=== PATIENT | male | born 1990 | race Caucasian/White ===

== ENCOUNTER 2017-10-26 22:02 | Emergency (ER) | payer OTHER ==
[2017-10-26 22:11] VITALS: BP 150/84; PULSE 85; RESP 20; TEMP 98.4
--- NOTE | 2017-10-26 22:43 | XR ---
EXAMINATION TYPE: XR chest 2V DATE OF EXAM: 10/26/2017 COMPARISON: NONE HISTORY: Cough and chest pain TECHNIQUE: Frontal and lateral views of the chest are obtained. FINDINGS: Heart and mediastinum are normal. Lungs are clear. Diaphragm is normal. Bony thorax appear s normal. There are chest leads. IMPRESSION: Normal chest
--- NOTE | 2017-10-26 23:09 | ED ---
Chest Pain HPI - General Chief Complaint: Chest Pain Stated Complaint: Chest Pains Time Seen by Provider: 10/26/17 22:24 Source: patient, family, RN notes reviewed Mode of arrival: ambulatory Limitations: no limitations - History of Present Illness Initial Comments: 27-year-old male presents emergency Department chief complaint of chest pain. He's had 3 separate occasions over the last month or so. Patient states that it sharp pain only lasts a few minutes. He does admit that he's been having acid reflux. He has no associated shortness of breath. Patient is a daily smoker has no history of hypertension, hyperlipidemia and diabetes. There is some family history of heart disease which includes his father age 50. Patient states she has no current chest pain denies any nausea, vomiting, diarrhea constipation. No fever no chills he does admit to occasional cough states that he coughs so hard that he felt that he had some blood in his sputum. He states his happened a few days ago. Patient has normal drug ALLERGIES. Patient states pain started today after eating 30 minutes prior. - Related Data Previous Rx's Medication Instructions Recorded Omeprazole [PriLOSEC] 20 mg PO AC-BRKFST #14 cap 10/26/17 Allergies Allergy/AdvReac Type Severity Reaction Status Date / Time No Known Allergies Allergy Verified 10/26/17 22:41 Review of Systems ROS Statement: Those systems with pertinent positive or pertinent negative responses have been documented in the HPI. ROS Other: All systems not noted in ROS Statement are negative. EKG Findings - EKG Comments: EKG Findings:: EKG performed at 22:25 normal sinus rhythm with rate of 75 MD 138 QRS 104 QT/QTC 354/395 Past Medical History Past Medical History: No Reported History History of Any Multi-Drug Resistant Organisms: None Reported Past Surgical History: No Surgical Hx Reported Past Psychological History: No Psychological Hx Reported Smoking Status: Current every day smoker Past Alcohol Use History: None Reported Past Drug Use History: None Reported General Exam Limitations: no limitations General appearance: alert, in no apparent distress Head exam: Present: atraumatic, normocephalic, normal inspection Neck exam: Present: normal inspection. Absent: tenderness, meningismus, lymphadenopathy Respiratory exam: Present: normal lung sounds bilaterally. Absent: respiratory distress, wheezes, rales, rhonchi, stridor Cardiovascular Exam: Present: regular rate, normal rhythm, normal heart sounds. Absent: systolic murmur, diastolic murmur, rubs, gallop, clicks GI/Abdominal exam: Present: soft, normal bowel sounds. Absent: distended, tenderness, guarding, rebound, rigid Back exam: Absent: CVA tenderness (R), CVA tenderness (L) Skin exam: Present: warm, dry, intact, normal color. Absent: rash Course Vital Signs 10/26/17 22:08 Temperature 98.4 F Pulse Rate 85 Respiratory 20 Rate Blood Pressure 150/84 O2 Sat by Pulse 99 Oximetry Chest Pain MDM - MDM 27-year-old male presents place from chief complaint of episodes of chest pain. He has no current pain at this time he is had a few episodes of last month or so. Patient symptoms seem to be associated with eating and reflux. He has no acute changes an EKG. Patient is a daily smoker did discuss smoking sensation. 3 minutes. We did discuss his phrases his wrist for. Disease. Patient will be discharged on antacids. Patient will follow with PCP for recheck in one to days. Disposition Clinical Impression: Atypical chest pain, GERD (gastroesophageal reflux disease) Disposition: HOME SELF-CARE Condition: Stable Instructions: Chest Pain (ED), Gastroesophageal Reflux Disease (ED) Additional Instructions: Please return to the Emergency Department if symptoms worsen or any other concerns. Prescriptions: Omeprazole [PriLOSEC] 20 mg PO AC-BRKFST #14 cap Is patient prescribed a controlled substance at d/c from ED?: No Referrals: Jhonny Colby DO [STAFF PHYSICIAN] - 1-2 days Time of Disposition: 23:09
== END 2017-10-26 23:20 | disposition home or self-care (01) ==
LOC: EC 22:02
DX: K21.9 Gastro-esophageal reflux disease without esophagitis (principal); F17.200 Nicotine dependence, unspecified, uncomplicated
CPT/HCPCS: 71046; 93005; 99284; 99406

== ENCOUNTER → 2024-09-01 | Outpatient (CLI) | payer OTHER ==
--- NOTE | 2024-09-01 11:54 | CA ---
Exercise Stress Test Report Name: Hayder Schwartz Exam Date: 09/01/2024 10:48 Exam Location: [place] Stress Ht (in): 70 Wt (lb): 155 BSA: 1.87 Ordering Phys: Lm George MD Referring Phys: Lm George MD Technologist: Dio Villa Age: 33 Gender: M : 1990 Procedure CPT: Indications: R07.9 CHEST PAIN Z82.49 FAMILY HX OF ISCHEM HEART ICD-10 Codes: Patient History: Chest pain and family history of heart disease. Medications: Meds past 24 hrs: Pretest Chest Pain: STRESS TEST Gonzalo Protocol Exercise Duration (min:sec): 12:[address] Depressions (mm): Angina Score: Rosales Score: Resting HR (bpm): 68 Peak HR (bpm): 168 Resting BP (mmHg): 118 / 69 Peak BP (mmHg): 191 / 75 MPHR: 187 Target HR: 159 % MPHR: 90 METS: 12.1 Total Dose: Peak Dose: Atropine: Double Product: 61334 BP Response: Stress Termination: Reached target heart rate Stress Symptoms: No chest pain or symptoms Stress Summary: ECG ANALYSIS Resting ECG: Stress ECG: CONCLUSIONS Baseline EKG reveals normal sinus rhythm without significant ST and T wave changes. Patient walked on a standard Gonzalo protocol for 12 minutes and achieved a maximal heart rate of 168 bpm which is more than 85% of predicted maximal. He developed fatigue and shortness of breath but did not have angina. There was no arrhythmia. There were no EKG changes to indicate ischemia. This is a negative stress test by EKG criteria with excellent exercise capacity Dr. James Bledsoe MD (Electronically Signed) Final Date: 01 September 2024 11:54
== END | disposition home or self-care (01) ==
LOC: RADNMMAIN 10:31
PROVIDERS: ATTEND Family Medicine
DX: R07.9 Chest pain, unspecified (principal); R53.83 Other fatigue; Z82.49 Family history of ischemic heart disease and other diseases of the circulatory system
CPT/HCPCS: 93017